=== PATIENT | female | born 1955 | race Caucasian/White ===

== ENCOUNTER 2019-08-20 10:42 | Emergency (ER) | payer OTHER ==
[2019-08-20] MEDS ORDERED: ONDANSETRON 4 MG/2 ML VIAL IVP STA (11:13)
[2019-08-20] MEDS ORDERED: SODIUM CHLORIDE 0.9% 1,000 ML IV STA (11:13)
[2019-08-20] MEDS ORDERED: MORPHINE SULFATE 4 MG/ML SYRINGE IV STA (11:13)
--- NOTE | 2019-08-20 11:20 | ED ---
General Adult HPI - General Chief complaint: Recheck/Abnormal Lab/Rx Stated complaint: Weakness Time Seen by Provider: 08/20/19 10:44 Source: patient, RN notes reviewed Mode of arrival: EMS Limitations: no limitations - History of Present Illness Initial comments: 63-year-old female with a past medical history of Crohn's disease, multiple bowel resections years ago in [place] presents to the emergency department for a chief complaint of abdominal pain. Patient states this morning she started to have generalized abdominal pain. States she cannot get comfortable because of this pain. States she is having nausea as well but has not had any vomiting. Patient states she is having loose stools but always has loose stools. No changes. No bloody or mucousy stools. Patient is from [place] and drove to [place] on Thursday. Patient has no other complaints at this time including shortness of breath, chest pain, headache, or visual changes. - Related Data Previous Rx's Medication Instructions Recorded predniSONE 50 mg PO DAILY #5 tablet 08/20/19 Allergies Allergy/AdvReac Type Severity Reaction Status Date / Time No Known Allergies Allergy Verified 08/20/19 11:01 Review of Systems ROS Statement: Those systems with pertinent positive or pertinent negative responses have been documented in the HPI. ROS Other: All systems not noted in ROS Statement are negative. Past Medical History Additional Past Medical History / Comment(s): crohns History of Any Multi-Drug Resistant Organisms: None Reported Past Surgical History: Bowel Resection Past Psychological History: No Psychological Hx Reported Smoking Status: Never smoker Past Alcohol Use History: None Reported Past Drug Use History: None Reported General Exam Limitations: no limitations General appearance: alert, in no apparent distress Head exam: Present: atraumatic, normocephalic, normal inspection Eye exam: Present: normal appearance, PERRL, EOMI. Absent: scleral icterus, conjunctival injection, periorbital swelling ENT exam: Present: normal exam, mucous membranes moist Neck exam: Present: normal inspection, full ROM. Absent: tenderness, meningismus Respiratory exam: Present: normal lung sounds bilaterally. Absent: respiratory distress, wheezes, rales, rhonchi, stridor Cardiovascular Exam: Present: regular rate, normal rhythm, normal heart sounds. Absent: systolic murmur, diastolic murmur, rubs, gallop, clicks GI/Abdominal exam: Present: soft, tenderness (generalized abdominal tenderness), normal bowel sounds. Absent: distended, guarding, rebound, rigid Neurological exam: Present: alert Psychiatric exam: Present: normal affect, normal mood Course Vital Signs 08/20/19 08/20/19 10:43 13:50 Temperature 97.9 F 98.1 F Pulse Rate 51 L 75 Respiratory 18 16 Rate Blood Pressure 153/87 98/69 O2 Sat by Pulse 100 97 Oximetry Medical Decision Making - Medical Decision Making Vitals are stable. CBC CMP unremarkable. Urinalysis shows 2+ ketones. CT shows partial colonic narrowing in the distal sigmoid colon with thick-walled mass and distal rectosigmoid wall thickening diffusely present . Distal sigmoid colonic mass should be considered. Colitis could be considered as well. I discussed this with patient and she was offered admission to the hospital but refused as she is from [place] and her surgical team is in [place]. I did print patient CT disc and she will take this to her surgeon. Patient is aware that she can return here for any worsening symptoms and we can always see her in our hospital for surgical consultation. In the meantime she was started on steroids as there was inflammatory changes as well given her history of Crohn's. - Lab Data Result diagrams: 08/20/19 11:18 08/20/19 11:18 Lab Results 08/20/19 08/20/19 08/20/19 Range/Units 11:00 11:18 11:18 WBC 8.7 (3.8-10.6) k/uL RBC 4.26 (3.80-5.40) m/uL Hgb 12.5 (11.4-16.0) gm/dL Hct 38.7 (34.0-46.0) % MCV 90.9 (80.0-100.0) fL MCH 29.3 (25.0-35.0) pg MCHC 32.2 (31.0-37.0) g/dL RDW 12.9 (11.5-15.5) % Plt Count 233 (150-450) k/uL Neutrophils % 75 % Lymphocytes % 19 % Monocytes % 4 % Eosinophils % 1 % Basophils % 0 % Neutrophils # 6.5 (1.3-7.7) k/uL Lymphocytes # 1.7 (1.0-4.8) k/uL Monocytes # 0.3 (0-1.0) k/uL Eosinophils # 0.1 (0-0.7) k/uL Basophils # 0.0 (0-0.2) k/uL Sodium 140 (137-145) mmol/L Potassium 3.8 (3.5-5.1) mmol/L Chloride 112 H (98-107) mmol/L Carbon Dioxide 20 L (22-30) mmol/L Anion Gap 8 mmol/L BUN 16 (7-17) mg/dL Creatinine 0.51 L (0.52-1.04) mg/dL Est GFR (CKD-EPI)AfAm >90 (>60 ml/min/1.73 sqM) Est GFR (CKD-EPI)NonAf >90 (>60 ml/min/1.73 sqM) Glucose 139 H (74-99) mg/dL Plasma Lactic Acid Mehran 1.9 (0.7-2.0) mmol/L Calcium 9.0 (8.4-10.2) mg/dL Total Bilirubin 0.5 (0.2-1.3) mg/dL AST 24 (14-36) U/L ALT 16 (4-34) U/L Alkaline Phosphatase 65 (38-126) U/L Total Protein 6.8 (6.3-8.2) g/dL Albumin 3.9 (3.5-5.0) g/dL Amylase 108 (30-110) U/L Lipase 295 (23-300) U/L Urine Color Urine Appearance (Clear) Urine pH (5.0-8.0) Ur Specific [place] (1.001-1.035) Urine Protein (Negative) Urine Glucose (UA) (Negative) Urine Ketones (Negative) Urine Blood (Negative) Urine Nitrite (Negative) Urine Bilirubin (Negative) Urine Urobilinogen (<2.0) mg/dL Ur Leukocyte Esterase (Negative) Urine RBC (0-5) /hpf Urine WBC (0-5) /hpf Ur Squamous Epith Cells (0-4) /hpf Hyaline Casts (0-2) /lpf Urine Mucus (None) /hpf 08/20/19 Range/Units 12:28 WBC (3.8-10.6) k/uL RBC (3.80-5.40) m/uL Hgb (11.4-16.0) gm/dL Hct (34.0-46.0) % MCV (80.0-100.0) fL MCH (25.0-35.0) pg MCHC (31.0-37.0) g/dL RDW (11.5-15.5) % Plt Count (150-450) k/uL Neutrophils % % Lymphocytes % % Monocytes % % Eosinophils % % Basophils % % Neutrophils # (1.3-7.7) k/uL Lymphocytes # (1.0-4.8) k/uL Monocytes # (0-1.0) k/uL Eosinophils # (0-0.7) k/uL Basophils # (0-0.2) k/uL Sodium (137-145) mmol/L Potassium (3.5-5.1) mmol/L Chloride (98-107) mmol/L Carbon Dioxide (22-30) mmol/L Anion Gap mmol/L BUN (7-17) mg/dL Creatinine (0.52-1.04) mg/dL Est GFR (CKD-EPI)AfAm (>60 ml/min/1.73 sqM) Est GFR (CKD-EPI)NonAf (>60 ml/min/1.73 sqM) Glucose (74-99) mg/dL Plasma Lactic Acid Mehran (0.7-2.0) mmol/L Calcium (8.4-10.2) mg/dL Total Bilirubin (0.2-1.3) mg/dL AST (14-36) U/L ALT (4-34) U/L Alkaline Phosphatase (38-126) U/L Total Protein (6.3-8.2) g/dL Albumin (3.5-5.0) g/dL Amylase (30-110) U/L Lipase (23-300) U/L Urine Color Yellow Urine Appearance Clear (Clear) Urine pH 5.0 (5.0-8.0) Ur Specific [place] 1.050 H (1.001-1.035) Urine Protein Negative (Negative) Urine Glucose (UA) Negative (Negative) Urine Ketones 2+ H (Negative) Urine Blood Small H (Negative) Urine Nitrite Negative (Negative) Urine Bilirubin Negative (Negative) Urine Urobilinogen <2.0 (<2.0) mg/dL Ur Leukocyte Esterase Negative (Negative) Urine RBC 3 (0-5) /hpf Urine WBC 1 (0-5) /hpf Ur Squamous Epith Cells 4 (0-4) /hpf Hyaline Casts 1 (0-2) /lpf Urine Mucus Rare H (None) /hpf Disposition Clinical Impression: Abdominal pain, Colonic mass Disposition: HOME SELF-CARE Condition: Good Instructions (If sedation given, give patient instructions): Abdominal Pain (ED) Additional Instructions: Please take steroid as directed. This was prescribed to Polina. Please follow- up with your surgeon. Return here for any worsening symptoms. Prescriptions: predniSONE 50 mg PO DAILY #5 tablet Is patient prescribed a controlled substance at d/c from ED?: No Referrals: Nonstaff,Physician [Primary Care Provider] - 1-2 days Time of Disposition: 13:40
[2019-08-20 11:29] LABS: Basophils % (A) 0 %; Eosinophils # (A) 0.1 k/uL (0-0.7); Eosinophils % (A) 1 %; HCT 38.7 % (34.0-46.0); HGB 12.5 gm/dL (11.4-16.0); Lymphocytes # (A) 1.7 k/uL (1.0-4.8); Lymphocytes % (A) 19 %; MCH 29.3 pg (25.0-35.0); MCHC 32.2 g/dL (31.0-37.0); MCV 90.9 fL (80.0-100.0); Monocytes # (A) 0.3 k/uL (0-1.0); Monocytes % (A) 4 %; Neutrophils # (A) 6.5 k/uL (1.3-7.7); Neutrophils % (A) 75 %; Platelet Count 233 k/uL (150-450); RBC 4.26 m/uL (3.80-5.40); RDW 12.9 % (11.5-15.5); WBC 8.7 k/uL (3.8-10.6)
[2019-08-20 11:39] LABS: ALT 16 U/L (4-34); AST 24 U/L (14-36); African American GFR (CKD) >90 (>60 ml/min/1.73 sqM); Albumin 3.9 g/dL (3.5-5.0); Alkaline Phosphatase 65 U/L (38-126); Amylase 108 U/L (30-110); Anion Gap 8 mmol/L; Blood Urea Nitrogen 16 mg/dL (7-17); Carbon Dioxide 20 mmol/L (22-30); Chloride 112 mmol/L (98-107); Glucose 139 mg/dL (74-99); Non-African American GFR(CKD) >90 (>60 ml/min/1.73 sqM); Potassium 3.8 mmol/L (3.5-5.1); Sodium 140 mmol/L (137-145); Total Bilirubin 0.5 mg/dL (0.2-1.3); Total Protein 6.8 g/dL (6.3-8.2)
[2019-08-20 12:37] LABS: Appearance,Urine Clear (Clear); Bilirubin,Urine Negative (Negative); Blood,Urine Small (Negative); Color,Urine Yellow; Glucose,Urine (UA) Negative (Negative); Hyaline Casts,Urine 1 /lpf (0-2); Ketones,Urine 2+ (Negative); Leukocyte Esterase,Urine Negative (Negative); Mucus,Urine Rare /hpf; Nitrite,Urine Negative (Negative); Protein,Urine Negative (Negative); RBC,Urine 3 /hpf (0-5); Squamous Epithelial Cell,Urine 4 /hpf (0-4); Urobilinogen,Urine <2.0 mg/dL (<2.0); WBC,Urine 1 /hpf (0-5)
--- NOTE | 2019-08-20 12:51 | CT ---
EXAMINATION TYPE: CT abdomen pelvis w con DATE OF EXAM: 08/20/2019 COMPARISON: None INDICATION: Abdominal pain DLP: 462 mGycm, Automated exposure control for dose reduction was used. CONTRAST: 100 ml mL of Isovue 300. Study performed with Oral Contrast TECHNIQUE: Axial images were obtained from above the diaphragm to the pubic rami in the axial plane a t 5 mm thick sections. Reconstructed images are reviewed on the computer in the coronal plane. FINDINGS: Limited CT sections are obtained the lung bases. There is a small area of pneumonitis change within the periphery of the right lower lobe. Series 204 image 7. Follow-up in [address] ABDOMEN: Liver: Hepatomegaly is present. Spleen: Normal Pancreas: Normal Adrenal glands: The adrenal glands are normal. Gallbladder: Normal Kidneys: No masses are evident. No hydronephrosis is present. No cysts are present. Delayed images were obtained through the kidneys, which remain unremarkable. Aorta: Normal Inferior vena cava: Normal. CT PELVIS: There is prior Hemicolectomy, anastomosis in the left upper quadrant of the distal transverse colon r egion appears widely patent. There is some thickening of the distal colon. Within the distal sigmoid colon there is a air collecti on within the lumen. Free air is not identified. Distal to this air collection there is thickening of the sigmoid colon and diffuse wall thickening to the rectum. Underlying mass should be considered. C olitis of the rectosigmoid region should be considered. Additional workup is recommended. Appendix: Absent Urinary bladder: Normal. Genitourinary structures: Uterus appears normal. Adnexal regions are normal. Osseous structures: No suspicious lytic or sclerotic lesions. IMPRESSIONS: 1. Partial colonic narrowing in the distal sigmoid colon with thick walled mass and distal rectosigm oid wall thickening diffusely is present. Distal sigmoid colon mass should be considered. Colitis cou ld be considered. Additional workup is recommended. 2. Hepatomegaly.
[2019-08-20] MEDS ORDERED: predniSONE 50 MG TAB PO STA (13:37)
[2019-08-20 13:53] VITALS: BP 98/69; PULSE 75; RESP 16; TEMP 98.1
== END 2019-08-20 13:50 | disposition home or self-care (01) ==
LOC: EC 10:42
DX: K63.89 Other specified diseases of intestine (principal)
CPT/HCPCS: 99285; 96374; 96375; 96361; 36415; 80053; 82150; 83605; 83690; 85025; 81001; 74177; U0003; J2270; J2405; J7512; Q9967

== ENCOUNTER 2021-07-02 05:19 | Emergency (ER) | payer OTHER ==
[2021-07-02] MEDS ORDERED: SODIUM CHLORIDE 0.9% 1,000 ML IV STA (07:21)
[2021-07-02] MEDS ORDERED: ONDANSETRON 4 MG/2 ML VIAL IVP STA (07:55)
[2021-07-02] MEDS ORDERED: HYDROmorphone 0.5 MG/0.5 ML SYRINGE IVP STA (07:55)
[2021-07-02 07:58] LABS: Basophils % (A) 0 %; Eosinophils # (A) 0.1 k/uL (0-0.7); Eosinophils % (A) 1 %; HGB 13.8 gm/dL (11.4-16.0); Lymphocytes # (A) 1.3 k/uL (1.0-4.8); Lymphocytes % (A) 12 %; MCH 30.1 pg (25.0-35.0); MCHC 32.9 g/dL (31.0-37.0); MCV 91.5 fL (80.0-100.0); Mean Platelet Volume 7.6; Monocytes # (A) 0.1 k/uL (0-1.0); Monocytes % (A) 1 %; Neutrophils # (A) 9.3 k/uL (1.3-7.7); Neutrophils % (A) 86 %; Platelet Count 256 k/uL (150-450); RBC 4.59 m/uL (3.80-5.40); RDW 12.5 % (11.5-15.5); WBC 10.8 k/uL (3.8-10.6)
--- NOTE | 2021-07-02 08:03 | ED ---
Abdominal Pain HPI - General Chief Complaint: Abdominal Pain Stated Complaint: Abdominal pain, diarrhea Time Seen by Provider: 07/02/21 07:21 Source: patient, RN notes reviewed Mode of arrival: ambulatory Limitations: no limitations - History of Present Illness Initial Comments: This a 65-year-old female presents emergency Department with chief complaint of abdominal pain. Patient has chronic abdominal issues she's had 2 prior rouse resection secondary to Crohn's. Patient states that she recently started increasing pain which are Dr called her in prednisone which she was unable started for Crohn's exacerbation. Patient states that she's had some nausea vomiting pain in her mid abdomen. Patient states she feels bloated. No history of strokes in she states she has chronic diarrhea she did notice some blood in it was not a large amount of blood and. Patient denies any chest pain shortness breath fevers or chills. - Related Data Previous Rx's Medication Instructions Recorded Ondansetron Odt [Zofran Odt] 4 mg PO Q8HR PRN #10 tab 07/02/21 Allergies Allergy/AdvReac Type Severity Reaction Status Date / Time No Known Allergies Allergy Verified 07/02/21 09:47 Review of Systems ROS Statement: Those systems with pertinent positive or pertinent negative responses have been documented in the HPI. ROS Other: All systems not noted in ROS Statement are negative. Past Medical History Additional Past Medical History / Comment(s): crohns, ulcerative colitis History of Any Multi-Drug Resistant Organisms: None Reported Past Surgical History: Bowel Resection Past Psychological History: No Psychological Hx Reported Smoking Status: Never smoker Past Alcohol Use History: None Reported Past Drug Use History: None Reported General Exam Limitations: no limitations General appearance: alert, in no apparent distress Head exam: Present: atraumatic, normocephalic, normal inspection Eye exam: Present: normal appearance, PERRL, EOMI. Absent: scleral icterus, conjunctival injection, periorbital swelling ENT exam: Present: normal exam, mucous membranes moist Neck exam: Present: normal inspection, full ROM. Absent: tenderness, meningismu s, lymphadenopathy Respiratory exam: Present: normal lung sounds bilaterally. Absent: respiratory distress, wheezes, rales, rhonchi, stridor Cardiovascular Exam: Present: regular rate, normal rhythm, normal heart sounds. Absent: systolic murmur, diastolic murmur, rubs, gallop, clicks GI/Abdominal exam: Present: soft, tenderness, normal bowel sounds. Absent: distended, guarding, rebound, rigid Course Vital Signs 07/02/21 07/02/21 05:20 08:03 Temperature 97.5 F L Pulse Rate 61 59 L Respiratory 20 18 Rate Blood Pressure 156/85 154/87 O2 Sat by Pulse 98 99 Oximetry Medical Decision Making - Medical Decision Making CT does not reveal any acute changes possible ileus, noted gallstones. Patient's pain is improved labs unremarkable. Patient advised to start her prednisone she has a history of Crohn's disease. Patient discharged with pain control return parameters were discussed. - Lab Data Result diagrams: 07/02/21 07:46 07/02/21 07:46 Lab Results 07/02/21 07/02/21 07/02/21 Range/Units 07:46 07:46 07:46 WBC 10.8 H (3.8-10.6) k/uL RBC 4.59 (3.80-5.40) m/uL Hgb 13.8 (11.4-16.0) gm/dL Hct 42.0 (34.0-46.0) % MCV 91.5 (80.0-100.0) fL MCH 30.1 (25.0-35.0) pg MCHC 32.9 (31.0-37.0) g/dL RDW 12.5 (11.5-15.5) % Plt Count 256 (150-450) k/uL MPV 7.6 Neutrophils % 86 % Lymphocytes % 12 % Monocytes % 1 % Eosinophils % 1 % Basophils % 0 % Neutrophils # 9.3 H (1.3-7.7) k/uL Lymphocytes # 1.3 (1.0-4.8) k/uL Monocytes # 0.1 (0-1.0) k/uL Eosinophils # 0.1 (0-0.7) k/uL Basophils # 0.0 (0-0.2) k/uL Sodium 139 (137-145) mmol/L Potassium 3.6 (3.5-5.1) mmol/L Chloride 108 H (98-107) mmol/L Carbon Dioxide 21 L (22-30) mmol/L Anion Gap 10 mmol/L BUN 17 (7-17) mg/dL Creatinine 0.52 (0.52-1.04) mg/dL Est GFR (CKD-EPI)AfAm >90 (>60 ml/min/1.73 sqM) Est GFR (CKD-EPI)NonAf >90 (>60 ml/min/1.73 sqM) Glucose 128 H (74-99) mg/dL Plasma Lactic Acid Mehran 1.6 (0.7-2.0) mmol/L Calcium 9.6 (8.4-10.2) mg/dL Total Bilirubin 0.6 (0.2-1.3) mg/dL AST 29 (14-36) U/L ALT 23 (4-34) U/L Alkaline Phosphatase 77 (38-126) U/L Total Protein 7.4 (6.3-8.2) g/dL Albumin 4.5 (3.5-5.0) g/dL Amylase 90 (30-110) U/L Lipase 103 (23-300) U/L Urine Color Urine Appearance (Clear) Urine pH (5.0-8.0) Ur Specific [place] (1.001-1.035) Urine Protein (Negative) Urine Glucose (UA) (Negative) Urine Ketones (Negative) Urine Blood (Negative) Urine Nitrite (Negative) Urine Bilirubin (Negative) Urine Urobilinogen (<2.0) mg/dL Ur Leukocyte Esterase (Negative) Urine RBC (0-5) /hpf Urine WBC (0-5) /hpf Ur Squamous Epith Cells (0-4) /hpf Calcium Oxalate Crystal (None) /hpf Urine Mucus (None) /hpf 07/02/21 Range/Units 09:52 WBC (3.8-10.6) k/uL RBC (3.80-5.40) m/uL Hgb (11.4-16.0) gm/dL Hct (34.0-46.0) % MCV (80.0-100.0) fL MCH (25.0-35.0) pg MCHC (31.0-37.0) g/dL RDW (11.5-15.5) % Plt Count (150-450) k/uL MPV Neutrophils % % Lymphocytes % % Monocytes % % Eosinophils % % Basophils % % Neutrophils # (1.3-7.7) k/uL Lymphocytes # (1.0-4.8) k/uL Monocytes # (0-1.0) k/uL Eosinophils # (0-0.7) k/uL Basophils # (0-0.2) k/uL Sodium (137-145) mmol/L Potassium (3.5-5.1) mmol/L Chloride (98-107) mmol/L Carbon Dioxide (22-30) mmol/L Anion Gap mmol/L BUN (7-17) mg/dL Creatinine (0.52-1.04) mg/dL Est GFR (CKD-EPI)AfAm (>60 ml/min/1.73 sqM) Est GFR (CKD-EPI)NonAf (>60 ml/min/1.73 sqM) Glucose (74-99) mg/dL Plasma Lactic Acid Mehran (0.7-2.0) mmol/L Calcium (8.4-10.2) mg/dL Total Bilirubin (0.2-1.3) mg/dL AST (14-36) U/L ALT (4-34) U/L Alkaline Phosphatase (38-126) U/L Total Protein (6.3-8.2) g/dL Albumin (3.5-5.0) g/dL Amylase (30-110) U/L Lipase (23-300) U/L Urine Color Yellow Urine Appearance Clear (Clear) Urine pH 5.5 (5.0-8.0) Ur Specific [place] >1.050 H (1.001-1.035) Urine Protein Trace H (Negative) Urine Glucose (UA) Negative (Negative) Urine Ketones Negative (Negative) Urine Blood Small H (Negative) Urine Nitrite Negative (Negative) Urine Bilirubin Negative (Negative) Urine Urobilinogen <2.0 (<2.0) mg/dL Ur Leukocyte Esterase Small H (Negative) Urine RBC 12 H (0-5) /hpf Urine WBC 3 (0-5) /hpf Ur Squamous Epith Cells 6 H (0-4) /hpf Calcium Oxalate Crystal Rare H (None) /hpf Urine Mucus Occasional H (None) /hpf Disposition Clinical Impression: Ileus, Abdominal pain, Crohn's disease Disposition: HOME SELF-CARE Condition: Stable Instructions (If sedation given, give patient instructions): Abdominal Pain (ED) Additional Instructions: Please return to the Emergency Department if symptoms worsen or any other concerns. Prescriptions: Ondansetron Odt [Zofran Odt] 4 mg PO Q8HR PRN #10 tab PRN Reason: Nausea Is patient prescribed a controlled substance at d/c from ED?: No Referrals: None,Stated [Primary Care Provider] - 1-2 days Time of Disposition: 10:08
[2021-07-02 08:05] VITALS: RESP 18
[2021-07-02 08:14] LABS: ALT 23 U/L (4-34); AST 29 U/L (14-36); African American GFR (CKD) >90 (>60 ml/min/1.73 sqM); Albumin 4.5 g/dL (3.5-5.0); Alkaline Phosphatase 77 U/L (38-126); Amylase 90 U/L (30-110); Anion Gap 10 mmol/L; Blood Urea Nitrogen 17 mg/dL (7-17); Calcium 9.6 mg/dL (8.4-10.2); Carbon Dioxide 21 mmol/L (22-30); Chloride 108 mmol/L (98-107); Glucose 128 mg/dL (74-99); Lipase 103 U/L (23-300); Non-African American GFR(CKD) >90 (>60 ml/min/1.73 sqM); Potassium 3.6 mmol/L (3.5-5.1); Sodium 139 mmol/L (137-145); Total Bilirubin 0.6 mg/dL (0.2-1.3); Total Protein 7.4 g/dL (6.3-8.2)
--- NOTE | 2021-07-02 08:56 | CT ---
EXAMINATION TYPE: CT abdomen pelvis w con DATE OF EXAM: 07/02/2021 COMPARISON: 08/20/2019 INDICATION: Abdominal pain DLP: 560.6 mGycm, Automated exposure control for dose reduction was used. CONTRAST: 100 mL of Isovue 300. Study performed without Oral Contrast TECHNIQUE: Axial images were obtained from above the diaphragm to the pubic rami in the axial plane a t 5 mm thick sections. Reconstructed images are reviewed on the computer in the coronal plane. FINDINGS: Limited CT sections are obtained the lung bases. The lung bases are clear. CT ABDOMEN: Liver: Normal Spleen: Normal Pancreas: Normal Adrenal glands: The adrenal glands are normal. Gallbladder: Couple of small gallstones appear to be present. Kidneys: No masses are evident. No hydronephrosis is present. No cysts are present. There is a non obstructing 0.2 cm calcification within the mid right kidney. Aorta: Vascular calcification is within the aorta. Inferior vena cava: Normal. CT PELVIS: There appears to be prior bowel surgery. There are fluid-filled small bowel loops which are prominent . Air and fecal debris extends to the colon There are loops of bowel which are incompletely distended or lack oral contrast limiting their evaluation. Appendix: Not visualized Urinary bladder: Normal. Genitourinary structures: Uterus appears normal. Adnexa are unremarkable. No free fluid is within the pelvis. Osseous structures: No suspicious lytic or sclerotic lesions. IMPRESSIONS: 1. Correlate for ileus. 2. Nonobstructing right renal stone. 3. Cholelithiasis
[2021-07-02 10:01] LABS: Appearance,Urine Clear (Clear); Bilirubin,Urine Negative (Negative); Blood,Urine Small (Negative); Calcium Oxalate Crystals,Urine Rare /hpf; Color,Urine Yellow; Glucose,Urine (UA) Negative (Negative); Ketones,Urine Negative (Negative); Leukocyte Esterase,Urine Small (Negative); Mucus,Urine Occasional /hpf; Nitrite,Urine Negative (Negative); PH, Urine 5.5 (5.0-8.0); Protein,Urine Trace (Negative); RBC,Urine 12 /hpf (0-5); Squamous Epithelial Cell,Urine 6 /hpf (0-4); Urobilinogen,Urine <2.0 mg/dL (<2.0); WBC,Urine 3 /hpf (0-5)
[2021-07-02 10:02] LABS: Specific Gravity,Urine >1.050 (1.001-1.035)
[2021-07-02] MEDS ORDERED: methylPREDNISolone SOD SUCCI 125 MG/2 ML VIAL IV STA (10:08)
[2021-07-02] MEDS ORDERED: ACET/COD 300 MG/30 MG STARTER PACK 6 TAB BTL PO STA (10:08)
[2021-07-02 10:35] VITALS: BP 115/21; PULSE 61; TEMP 98.4
== END 2021-07-02 10:35 | disposition home or self-care (01) ==
LOC: EC 05:19
DX: K50.90 Crohn's disease, unspecified, without complications (principal); K56.7 Ileus, unspecified
CPT/HCPCS: 36415; 80053; 82150; 83605; 83690; 85025; 81001; 74177; 99284; 96374; 96375; 96361; J2930; J2405; J1170; Q9967

== ENCOUNTER → 2021-08-29 | Outpatient (CLI) | payer OTHER ==
--- NOTE | 2021-08-29 10:16 | XR ---
EXAMINATION TYPE: XR KUB DATE OF EXAM: 08/29/2021 HISTORY: Pain Comparison: None.Single KUB is submitted for interpretation. Findings: Right renal calculi: None Visualized. Right ureteral calculi: Right ureteral stent is in place. Left renal calculi: None Visualized. Left ureteral calculi: None Visualized. Pelvic calcifications: None Visualized. Bowel gas pattern is unremarkable. No free air. No mass effects. IMPRESSION: 1. As above
== END | disposition home or self-care (01) ==
LOC: RADXRMAIN 09:58
PROVIDERS: ATTEND Urology
DX: R10.9 Unspecified abdominal pain (principal); Z96.0 Presence of urogenital implants
CPT/HCPCS: 74018

== ENCOUNTER 2022-09-22 20:35 | Emergency (ER) | payer OTHER ==
[2022-09-22 20:39] VITALS: BP 125/74; PULSE 71; RESP 18; TEMP 98.2
[2022-09-22] MEDS ORDERED: DIPH,PERTUS(ACELL)TETVAC-LF 0.5 ML VIAL IM ONE (20:46)
[2022-09-22] MEDS ORDERED: IBUPROFEN 600 MG TAB PO STA (20:46)
[2022-09-22] MEDS ORDERED: AMOXIC-POT CLAV 875-125MG 1 EACH TAB PO STA (20:46)
--- NOTE | 2022-09-22 21:04 | ED ---
Animal Bite HPI - General Chief Complaint: Animal Bite Stated Complaint: Dog Bite Left Arm Time Seen by Provider: 09/22/22 20:40 Source: patient, RN notes reviewed Mode of arrival: ambulatory Limitations: no limitations - History of Present Illness Initial Comments: This is a 67-year-old female who presents to the emergency department for a dog bite to left arm. States that she was cutting her dog's hair when she accidentally nicked her dog with the scissors, causing her dog bite left forearm. Her dog is up-to-date on all immunizations. Unsure when her last tetanus vaccine was. States that it is very painful. Her dog is a 20lb mixed breed. Denies any fevers, chills, sore throat, cough, dyspnea, chest pain, palpitations, abdominal pain, nausea, vomiting, diarrhea, back pain, or headaches. MD Complaint: animal bite Left: Forearm - Related Data Previous Rx's Medication Instructions Recorded Ondansetron Odt [Zofran Odt] 4 mg PO Q8HR PRN #10 tab 07/02/21 Amoxic-Pot Clav 875-125Mg 1 tab PO Q12HR 10 Days #20 tab 09/22/22 [Augmentin 875-125] Allergies Allergy/AdvReac Type Severity Reaction Status Date / Time No Known Allergies Allergy Verified 09/22/22 20:39 Review of Systems ROS Statement: Those systems with pertinent positive or pertinent negative responses have been documented in the HPI. ROS Other: All systems not noted in ROS Statement are negative. Past Medical History Additional Past Medical History / Comment(s): crohns, ulcerative colitis History of Any Multi-Drug Resistant Organisms: None Reported Past Surgical History: Bowel Resection Past Psychological History: Anxiety, Depression Smoking Status: Never smoker Past Alcohol Use History: None Reported Past Drug Use History: Marijuana General Exam Limitations: no limitations General appearance: alert, in no apparent distress Head exam: Present: atraumatic, normocephalic, normal inspection Respiratory exam: Present: normal lung sounds bilaterally. Absent: respiratory distress, wheezes, rales, rhonchi, stridor Cardiovascular Exam: Present: regular rate, normal rhythm, normal heart sounds. Absent: systolic murmur, diastolic murmur, rubs, gallop, clicks Extremities exam: Present: other (Superficial lacerations to the dorsal and ventral aspect of the left forearm. No active bleeding. No visible subcutaneous tissue.) Neurological exam: Present: alert, oriented X3, CN II-XII intact Psychiatric exam: Present: normal affect, normal mood Course Vital Signs 09/22/22 20:36 Temperature 98.2 F Pulse Rate 71 Respiratory 18 Rate Blood Pressure 125/74 O2 Sat by Pulse 96 Oximetry Medical Decision Making - Medical Decision Making This is a 67-year-old female who presents to the emergency department for a dog bite to the left arm. Was pt. sent in by a medical professional or institution? @ -No Did you speak to anyone other than the patient for history? @ -No Did you review nursing and triage notes? @ -Yes, and I agree, it is accurate with regards to the patient's symptoms. Were old charts reviewed? @ -No Differential Diagnosis? @ -Not applicable EKG interpreted by me (3pts min.)? @ -Not obtained X-rays interpreted by me (1pt min.)? @ -Not obtained CT interpreted by me (1pt min.)? @ -Not obtained U/S interpreted by me (1pt. min.)? @ -Not obtained What testing was considered but not performed? (CT, X-rays, U/S, labs)? Why? @ -None What meds were considered but not given? Why? @ -None Did you discuss the management of the patient with other professionals? @ -No Did you reconcile home meds? @ -No Was smoking cessation discussed for >3mins.? @ -No Was critical care preformed (if so, how long)? @ -No Were there social determinants of health that impacted care today? How? (Homelessness, low income, unemployed, alcoholism, drug addiction, transportation, low edu. Level, literacy, decrease access to med. care, nursing home, rehab)? @ -No Was there de-escalation of care discussed even if they declined? (Discuss DNR or withdrawal of care, Hospice)? @ -No What co-morbidities impacted this encounter? (DM, HTN, Smoking, COPD, CAD, Cancer, CVA, Hep., AIDS, mental health diagnosis, sleep apnea, morbid obesity)? @ -None Was patient admitted / discharged? @ -Discharged. The patient's arm was soaked in a bucket of sterile water mixed with iodine to clean the wound. The wound itself was superificial and Steri- Strips were applied. Her arm was then bandaged. She was given a dose of Augmentin and ibuprofen in the emergency department. Tetanus vaccine was also updated. Prescription for Augmentin provided with dosing instructions reviewed. Advised she continue with ibuprofen and Tylenol as needed for pain relief. Undiagnosed new problem with uncertain prognosis? @ -None Drug Therapy requiring intensive monitoring for toxicity (Heparin, Nitro, Insulin, Cardizem)? @ -None Were any procedures done? @ -None Diagnosis/symptom? @ -Dog bite Acute, or Chronic, or Acute on Chronic? @ -Acute Uncomplicated (without systemic symptoms) or Complicated (systemic symptoms)? @ -Uncomplicated Side effects of treatment? @ -None Exacerbation, Progression, or Severe Exacerbation] @ -Not applicable Poses a threat to life or bodily function? @ -No Return precautions reviewed in depth, the patient is instructed to return to the emergency department with any new, worsening, or concerning symptoms. Patient verbalized understanding. This case was discussed in detail with the attending ED physician, Dr. Ruvalcaba. Presentation, findings, and treatment plan discussed in detail as well. Disposition Clinical Impression: Dog bite Disposition: HOME SELF-CARE Instructions (If sedation given, give patient instructions): Animal Bite (ED) Additional Instructions: Return to the emergency department with any new, worsening, or concerning symptoms. Take the antibiotic as prescribed for 10 days. Alternate with ibuprofen and Tylenol as needed for pain relief. Do not apply any topical antibiotic ointment. Follow up with your primary care provider in 1-2 days. Prescriptions: Amoxic-Pot Clav 875-125Mg [Augmentin 875-125] 1 tab PO Q12HR 10 Days #20 tab Is patient prescribed a controlled substance at d/c from ED?: No Referrals: None,Stated [Primary Care Provider] - 1-2 days
[2022-09-22] MEDS ORDERED: IBUPROFEN 600 MG STARTER PACK 4 TAB BTL PO STA (21:25)
[2022-09-22] MEDS ORDERED: ACET/COD 300 MG/30 MG STARTER PACK 6 TAB BTL PO STA (21:25)
== END 2022-09-22 21:37 | disposition home or self-care (01) ==
LOC: EC 20:35
DX: S51.812A Laceration without foreign body of left forearm, initial encounter (principal); F12.90 Cannabis use, unspecified, uncomplicated; Z23 Encounter for immunization; W54.0XXA Bitten by dog, initial encounter
CPT/HCPCS: 90471; 90715; 99283

== ENCOUNTER 2022-09-25 15:56 | Emergency (ER) | payer OTHER ==
[2022-09-25 16:48] VITALS: RESP 16
--- NOTE | 2022-09-25 17:23 | ED ---
General Adult HPI - General Chief complaint: Skin/Abscess/Foreign Body Stated complaint: Recheck, L Arm Lac Time Seen by Provider: 09/25/22 16:51 Source: patient Mode of arrival: ambulatory Limitations: no limitations - History of Present Illness Initial comments: 67-year-old female presenting with chief complaint of worsening infection to dog bite obtain 3 days ago. Patient was seen at our facility and started on Augmentin on Thursday. States that while the other bites are healing well bite located on the anterior surface of the forearm seems to be worsening. There is a small amount of redness and swelling. Small amount of pus able to be expressed. Denies fever, chills, nausea, vomiting, numbness, tingling, weakness. - Related Data Previous Rx's Medication Instructions Recorded Ondansetron Odt [Zofran Odt] 4 mg PO Q8HR PRN #10 tab 07/02/21 Amoxic-Pot Clav 875-125Mg 1 tab PO Q12HR 10 Days #20 tab 09/22/22 [Augmentin 875-125] Allergies Allergy/AdvReac Type Severity Reaction Status Date / Time No Known Allergies Allergy Verified 09/25/22 16:48 Review of Systems ROS Statement: Those systems with pertinent positive or pertinent negative responses have been documented in the HPI. ROS Other: All systems not noted in ROS Statement are negative. Past Medical History Additional Past Medical History / Comment(s): crohns, ulcerative colitis History of Any Multi-Drug Resistant Organisms: None Reported Past Surgical History: Bowel Resection Past Psychological History: Anxiety, Depression Smoking Status: Never smoker Past Alcohol Use History: None Reported Past Drug Use History: Marijuana General Exam Limitations: no limitations General appearance: alert, in no apparent distress Head exam: Present: atraumatic, normocephalic, normal inspection Eye exam: Present: normal appearance, EOMI Neck exam: Present: normal inspection, full ROM Respiratory exam: Present: normal lung sounds bilaterally. Absent: respiratory distress, wheezes, rales, rhonchi, stridor Cardiovascular Exam: Present: regular rate, normal rhythm, normal heart sounds. Absent: systolic murmur, diastolic murmur, rubs, gallop, clicks Neurological exam: Present: alert, oriented X3, CN II-XII intact Psychiatric exam: Present: normal affect, normal mood Skin exam: Present: warm, erythema (Small amount of erythema surrounding the puncture wound located on the left forearm) Course Vital Signs 09/25/22 09/25/22 16:46 17:53 Temperature 98.3 F 98.4 F Pulse Rate 61 67 Respiratory 16 16 Rate Blood Pressure 112/61 126/82 O2 Sat by Pulse 99 99 Oximetry Medical Decision Making - Medical Decision Making Was pt. sent in by a medical professional or institution (, JAMILAH, HIGH SCHOOL FRENCH TEACHER, urgent care, hospital, or halfway...) When possible be specific @ -No Did you speak to anyone other than the patient for history (EMS, parent, family, police, friend...)? What history was obtained from this source @ -No Did you review nursing and triage notes (agree or disagree)? Why? @ -I reviewed and agree with nursing and triage notes Were old charts reviewed (outside hosp., previous admission, EMS record, old EKG, old radiological studies, urgent care reports/EKG's, halfway records)? Report findings @ -No old charts were reviewed Differential Diagnosis (chest pain, altered mental status, abdominal pain women, abdominal pain men, vaginal bleeding, weakness, fever, dyspnea, syncope, headache, dizziness, GI bleed, back pain, seizure, CVA, palpatations, mental he alth, musculoskeletal)? @ -Differential includes cellulitis, abscess, ALLERGIC reaction, this is not an all inclusive list EKG interpreted by me (3pts min.). @ -As above X-rays interpreted by me (1pt min.). @ -None done CT interpreted by me (1pt min.). @ -None done U/S interpreted by me (1pt. min.). @ -None done What testing was considered but not performed or refused? (CT, X-rays, U/S, labs)? Why? @ -None What meds were considered but not given or refused? Why? @ -None Did you discuss the management of the patient with other professionals (professionals i.e. JAMILAH Kwan, HIGH SCHOOL FRENCH TEACHER, lab, RT, psych nurse, clinical social worker, delivery technician, teacher, public health service officer, caser)? Give summary @ -No Was smoking cessation discussed for >3mins.? @ -No Was critical care preformed (if so, how long)? @ -No Were there social determinants of health that impacted care today? How? (Homelessness, low income, unemployed, alcoholism, drug addiction, transportation, low edu. Level, literacy, decrease access to med. care, long term, rehab)? @ -No Was there de-escalation of care discussed even if they declined (Discuss DNR or withdrawal of care, Hospice)? DNR status @ -No What co-morbidities impacted this encounter? (DM, HTN, Smoking, COPD, CAD, Cancer, CVA, ARF, Chemo, Hep., AIDS, mental health diagnosis, sleep apnea, morbid obesity)? @ -None Was patient admitted / discharged? Hospital course, mention meds given and route, prescriptions, significant lab abnormalities, going to OR and other pertinent info. @ -67-year-old female presenting with chief complaint of worsening infection to dog bite obtain 3 days ago. Patient is on Augmentin. On physical examination there is some surrounding erythema to the puncture wound. He is able to express a small amount of pus, cultures obtained. Patient is nontoxic appearing. She has full range of motion of the extremities and sensation. She is provided with Bactroban ointment and educated on wound care and alarm symptoms such prompt immediate reevaluation. Follow-up with PCP. Report back to ER with any new or worsening symptoms. Discussed return parameters and answered all questions. Patient conveyed verbal understanding and agreed to the plan. I discussed this case in detail with my attending Dr. Condon Undiagnosed new problem with uncertain prognosis? @ -No Drug Therapy requiring intensive monitoring for toxicity (Heparin, Nitro, Insulin, Cardizem)? @ -No Were any procedures done? @ -No Diagnosis/symptom? @ -Cellulitis. Acute, or Chronic, or Acute on Chronic? @ -Acute Uncomplicated (without systemic symptoms) or Complicated (systemic symptoms)? @ -Uncomplicated Side effects of treatment? @ -No Exacerbation, Progression, or Severe Exacerbation? @ -No Poses a threat to life or bodily function? How? (Chest pain, [place], [place], pneumonia, PE, COPD, DKA, ARF, appy, cholecystitis, CVA, Diverticulitis, Homicidal, Suicidal, threat to staff... and all critical care pts) @ -No Disposition Clinical Impression: Cellulitis Disposition: HOME SELF-CARE Condition: Good Instructions (If sedation given, give patient instructions): Cellulitis (ED) Additional Instructions: Follow-up with PCP in one to 2 days. Report back to ER with any new or worsening symptoms. Apply antibiotic 3 times a day. Continue taking oral antibiotics as prescribed Is patient prescribed a controlled substance at d/c from ED?: No Referrals: Nonstaff,Physician [Primary Care Provider] - 1-2 days Time of Disposition: 17:21
[2022-09-25] MEDS ORDERED: MUPIROCIN 2% OINT 22 GM TUBE TOPICAL SCH (17:30)
[2022-09-25 17:55] VITALS: BP 126/82; PULSE 67; TEMP 98.4
== END 2022-09-25 17:55 | disposition home or self-care (01) ==
LOC: EC 15:56
DX: L03.114 Cellulitis of left upper limb (principal); F12.90 Cannabis use, unspecified, uncomplicated; Z86.59 Personal history of other mental and behavioral disorders
CPT/HCPCS: 87070; 87205; 99283

== ENCOUNTER 2022-09-27 13:42 | Emergency (ER) | payer OTHER ==
[2022-09-27 13:55] VITALS: TEMP 98.6
--- NOTE | 2022-09-27 15:07 | ED ---
Recheck HPI - General Chief Complaint: Recheck/Abnormal Lab/Rx Stated Complaint: Left arm wound Time Seen by Provider: 09/27/22 14:02 Source: patient, RN notes reviewed Mode of arrival: ambulatory Limitations: no limitations - History of Present Illness Initial Comments: 67-year-old female presents emergency Department with chief complaint of left arm infection. Patient states she's bit by her dog states that she is placed on antibiotics initially states she was seen here again she noticed some increasing redness. States "he was taking. She states there is an area of swelling on her left arm. Patient denies any fevers chills no pain in her left axilla no other complaints. - Related Data Previous Rx's Medication Instructions Recorded Ondansetron Odt [Zofran Odt] 4 mg PO Q8HR PRN #10 tab 07/02/21 Amoxic-Pot Clav 875-125Mg 1 tab PO Q12HR 10 Days #20 tab 09/22/22 [Augmentin 875-125] Allergies Allergy/AdvReac Type Severity Reaction Status Date / Time No Known Allergies Allergy Verified 09/27/22 13:55 Review of Systems ROS Statement: Those systems with pertinent positive or pertinent negative responses have been documented in the HPI. ROS Other: All systems not noted in ROS Statement are negative. Past Medical History Additional Past Medical History / Comment(s): crohns, ulcerative colitis History of Any Multi-Drug Resistant Organisms: None Reported Past Surgical History: Bowel Resection Past Psychological History: Anxiety, Depression Smoking Status: Never smoker Past Alcohol Use History: None Reported Past Drug Use History: Marijuana General Exam Limitations: no limitations General appearance: alert, in no apparent distress Head exam: Present: atraumatic, normocephalic, normal inspection Eye exam: Present: normal appearance, PERRL, EOMI. Absent: scleral icterus, conjunctival injection, periorbital swelling Neck exam: Present: normal inspection, full ROM. Absent: tenderness Respiratory exam: Present: normal lung sounds bilaterally. Absent: respiratory distress, wheezes, rales, rhonchi, stridor Cardiovascular Exam: Present: regular rate, normal rhythm, normal heart sounds. Absent: systolic murmur, diastolic murmur, rubs, gallop, clicks Extremities exam: Present: other (Left arm there is no swelling on the for surface, neurovascular intact there is no significant lymphangitis to changes) Course Vital Signs 09/27/22 13:53 Temperature 98.6 F Pulse Rate 64 Respiratory 20 Rate Blood Pressure 126/74 O2 Sat by Pulse 99 Oximetry Medical Decision Making - Medical Decision Making Was pt. sent in by a medical professional or institution (JAMILAH Kwan, NUT SORTER OPERATOR, urgent care, hospital, or fci...) When possible be specific @ -No Did you speak to anyone other than the patient for history (EMS, parent, family, police, friend...)? What history was obtained from this source @ -No Did you review nursing and triage notes (agree or disagree)? Why? @ -I reviewed and agree with nursing and triage notes Were old charts reviewed (outside hosp., previous admission, EMS record, old EKG, old radiological studies, urgent care reports/EKG's, fci records)? Report findings @ -Reviewed recent ER visits including medications provided Differential Diagnosis (chest pain, altered mental status, abdominal pain women, abdominal pain men, vaginal bleeding, weakness, fever, dyspnea, syncope, headache, dizziness, GI bleed, back pain, seizure, CVA, palpatations, mental health, musculoskeletal)? @ -Cellulitis, lymphangitis, abscess EKG interpreted by me (3pts min.). @ -None X-rays interpreted by me (1pt min.). @ -None done CT interpreted by me (1pt min.). @ -None done U/S interpreted by me (1pt. min.). @ -Ultrasound shows no foreign body, possible complex fluid collection less than 1 cm What testing was considered but not performed or refused? (CT, X-rays, U/S, labs)? Why? @ -None What meds were considered but not given or refused? Why? @ -None Did you discuss the management of the patient with other professionals (professionals i.e. JAMILAH Kwan, NUT SORTER OPERATOR, lab, RT, psych nurse, director social, turbine blade assembler, teacher, special service officer, case repairer)? Give summary @ -No Was smoking cessation discussed for >3mins.? @ -No Was critical care preformed (if so, how long)? @ -No Were there social determinants of health that impacted care today? How? (Homelessness, low income, unemployed, alcoholism, drug addiction, transportation, low edu. Level, literacy, decrease access to med. care, residential, rehab)? @ -No Was there de-escalation of care discussed even if they declined (Discuss DNR or withdrawal of care, Hospice)? DNR status @ -No What co-morbidities impacted this encounter? (DM, HTN, Smoking, COPD, CAD, Cancer, CVA, ARF, Chemo, Hep., AIDS, mental health diagnosis, sleep apnea, morbid obesity)? @ -None Was patient admitted / discharged? Hospital course, mention meds given and route, prescriptions, significant lab abnormalities, going to OR and other pertinent info. @ -Discharge patient is currently on Augmentin. Patient has small area of swelling to her forearm there is small fluid collection we discussed possible needle aspiration patient will attempt warm compresses, continue antibiotics and return parameters were discussed. Undiagnosed new problem with uncertain prognosis? @ -No Drug Therapy requiring intensive monitoring for toxicity (Heparin, Nitro, Insulin, Cardizem)? @ -No Were any procedures done? @ -No Diagnosis/symptom? @ -Dog bite, abscess Acute, or Chronic, or Acute on Chronic? @ -Acute Uncomplicated (without systemic symptoms) or Complicated (systemic symptoms)? @ -Uncomplicated Side effects of treatment? @ -No Exacerbation, Progression, or Severe Exacerbation? @ -No Poses a threat to life or bodily function? How? (Chest pain, [place], [place], pneumonia, PE, COPD, DKA, ARF, appy, cholecystitis, CVA, Diverticulitis, Homicidal, Suicidal, threat to staff... and all critical care pts) @ -No Disposition Clinical Impression: Dog bite, Arm abscess Disposition: HOME SELF-CARE Condition: Stable Instructions (If sedation given, give patient instructions): Abscess (ED) Additional Instructions: Please return to the Emergency Department if symptoms worsen or any other concerns. Is patient prescribed a controlled substance at d/c from ED?: No Referrals: Nonstaff,Physician [Primary Care Provider] - 1-2 days Time of Disposition: 16:17
--- NOTE | 2022-09-27 15:53 | US ---
EXAMINATION TYPE: US extremity nonvasc mass LT DATE OF EXAM: 09/27/2022 COMPARISON: NONE CLINICAL INDICATION: Female, 67 years old with history of Possible foreign body, abscess; Patient's d og bit her forearm on Thursday. Possible foreign body, abscess. TECHNIQUE: Limited real-time grayscale and color Doppler evaluation of the left forearm soft tissues . FINDINGS: Sonographic evaluation of the patient's indicated area of concern in the medial forearm soft tissues demonstrates a 1.0 x 0.9 x 0.5 cm complex fluid collection. There is mild induration and hyperemia of the surrounding tissues. IMPRESSION: Complex fluid collection within the medial forearm soft tissues, concerning for small abscess given h istory of penetrating trauma.
[2022-09-27 16:33] VITALS: BP 136/90; PULSE 55; RESP 18
== END 2022-09-27 16:33 | disposition home or self-care (01) ==
LOC: EC 13:42
DX: S51.852A Open bite of left forearm, initial encounter (principal); L02.414 Cutaneous abscess of left upper limb; F12.90 Cannabis use, unspecified, uncomplicated; W54.0XXA Bitten by dog, initial encounter
CPT/HCPCS: 99284